=== PATIENT | male | born 1970 | race Caucasian/White ===

== ENCOUNTER → 2016-09-12 | Outpatient (CLI) | payer OTHER ==
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
== END | disposition home or self-care (01) ==
LOC: SLEEP 13:10
PROVIDERS: ATTEND Internal Medicine Critical Care Medicine
DX: G47.33 Obstructive sleep apnea (adult) (pediatric) (principal); E78.5 Hyperlipidemia, unspecified; Z79.899 Other long term (current) drug therapy
CPT/HCPCS: 99211

== ENCOUNTER → 2022-08-15 | Outpatient (CLI) | payer BC ==
--- NOTE | 2022-08-15 15:14 | XR ---
EXAMINATION TYPE: XR chest 2V DATE OF EXAM: 08/15/2022 COMPARISON: 10/19/2010 HISTORY: 51-year-old male [id number], acute cough TECHNIQUE: Frontal and lateral views FINDINGS: Heart normal size. Slightly low lung volumes. Vascular markings. Mild bibasilar density, somewhat str ained knee on the right and patchy on the left. No pleural effusion. IMPRESSION: Hypoventilatory changes with some strandy atelectasis at the right base. Additional more patchy demarco e at the left base could represent additional atelectasis/scarring versus developing infiltrate/pneum onia.
== END | disposition home or self-care (01) ==
LOC: RADXRYALE 13:33
PROVIDERS: ATTEND Internal Medicine
DX: J98.11 Atelectasis (principal)
CPT/HCPCS: 71046

== ENCOUNTER → 2022-08-29 | Outpatient (CLI) | payer BC ==
--- NOTE | 2022-08-29 08:21 | CT ---
EXAMINATION TYPE: CT chest w con CT DLP: 737 mGycm, Automated exposure control for dose reduction was used. DATE OF EXAM: 08/29/2022 8:06 AM COMPARISON: Chest radiograph 08/15/2022. CLINICAL INDICATION:Male, 51 years old with history of J18.9 PNEUMONIA; PHH, Hx pneumonia. Pt states recent CXR showed cloudiness. Hx collapsed lung. TECHNIQUE: Multiple axial images were obtained through the chest following the administration of 70 c c of Isovue 300. FINDINGS: LUNGS/ PLEURA: No pneumothorax, pleural effusion, or focal consolidation. No suspicious pulmonary nod ule or mass. AIRWAY: Patent and unremarkable.. HEART: Size within normal limits. No pericardial effusion. MEDIASTINUM: No gross evidence of adenopathy. VASCULATURE: No aortic aneurysm. MUSCULOSKELETAL: No acute osseous abnormalities SOFT TISSUES/LYMPH NODES: Unremarkable. LOWER NECK: No significant findings. UPPER ABDOMEN: Lobulated appearance of likely splenic tissue within the left upper quadrant/splenosis . Partial visualization suspected blake mesentery. 1.4 cm cyst within the left kidney. IMPRESSION: 1. No evidence of pneumothorax, pleural effusion, or focal consolidation. 2. Partial visualization of suspected blake mesentery in the abdomen which can be seen with mesenteri c panniculitis.
== END | disposition home or self-care (01) ==
LOC: RADCTMAIN 07:32
PROVIDERS: ATTEND Internal Medicine
DX: J18.9 Pneumonia, unspecified organism (principal)
CPT/HCPCS: 71260; Q9967

== ENCOUNTER 2024-06-12 08:31 | Emergency (ER) | payer OTHER ==
[2024-06-12 08:44] VITALS: RESP 18
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
[2024-06-12] MEDS: IBUPROFEN 800 MG TAB PO STA (09:39)
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
[2024-06-12 11:28] VITALS: BP 126/86; PULSE 72; TEMP 98.3
== END 2024-06-12 11:27 | disposition home or self-care (01) ==
LOC: EC 08:31
CPT/HCPCS: 70450; 71045; 72070; 72125; 99284